=== PATIENT | female | born 1955 | race Caucasian/White ===

== ENCOUNTER 2021-02-01 09:56 | Outpatient (AMBR) | payer MEDICARE, MEDICAID, SELFPAY ==
--- NOTE | 2021-01-10 15:41 | PTNOTE_ITS ---
PT OP Initial Eval Patient Information Visit Reasons: POST OP KNEE Medical Diagnosis: Z47.89 Treatment Dx #1: Left Knee Mobility Deficits Treatment Dx #2: Left Knee Weakness Start of Care: 01/10/21 Date of Onset: 12/12/20 Initial Assessment Subjective Pt is a 65 y/o female s/p left knee arthroscopic surgery secondary to meniscal lesions 12/12/20. Pt has limitation with walking, standing, sitting, chores, self care, cooking, cleaning, and recreational activities. Objective Left Knee AROM: -12 deg to 90 deg with pain Left Knee MMTs Quads: 3-/5 Hs: 3-/5 Left Hip MMTs Glute Med: 3-/5 Glute Max: 3-/5 Knee Cap Mobility: decrease in all plane SLS: unable Assessment Pt demonstrate left knee pain and weakness s/p knee surgery leading to decline function. Pt will benefit from physical therapy to increase strength, mobility, and work on ambulation Short Term and Halfway Goals 1) Increase left knee AROM WFL in 12 wks to be able to perform squatting activities 2) Increase left knee MMTs grossly to 4-/5 in 12 wks to be able to perform chores 3) Decrease knee pain to 2/10 in 12 wks to be able to walk more than 1 hr 4) Increase left hip MMTs grossly to 3+/5 in 12 wks to be able to perform recreational activities 5) Increase SLS to 20 sec in 12 wks to be able to perform self care activities 6) Indep with HEP Treatment Plan 1) Manual Therapy 2) Therapeutic Activities 3) Therapeutic Exercises 4) Modalities (ice, heat) 5) Balance Training 6) Gait Training Frequency and Duration 2 x wk for 12 wks Certification Dates: 01/10/21 to 04/11/21 Office Procedures PT Procedures PT Date of Service: 01/10/21 OP PT Eval Mod Complex 30 minutes: Yes
--- NOTE | 2021-01-15 13:40 | PT.ODAYNRPT ---
PT Outpatient Daily Note Date of Service: 01/15/21 OP Daily Note Visit Reasons: POST OP KNEE Outpatient Physical Therapy Treatment Date: 01/15/21 Subjective: Pt's knee still hurts but she's been able to move it a lot more Objective: Please see flow chart for list of ther ex performed Assessment: tolerate exercises performed. difficulty with heel slide due to pain but able to complete exercise Plan: Continue with PT Length of Time (minutes) of Treatment: 30 Minutes Office Procedures PT Procedures PT Date of Service: 01/10/21 OP PT Eval Mod Complex 30 minutes: Yes PT Procedures PT Date of Service: 01/15/21 Therapeutic Exercise 30 minutes: Yes
--- NOTE | 2021-01-17 14:10 | PT.ODAYNRPT ---
PT Outpatient Daily Note Date of Service: 01/17/21 OP Daily Note Visit Reasons: POST OP KNEE Outpatient Physical Therapy Treatment Date: 01/17/21 Subjective: Pt notice increase BLE swelling in the legs L>R after last session. Pt feels that it's not related to physical therapy exercises done last session. Today Pt's knee is feeling better. Objective: Please see flow chart for list of ther ex performed Assessment: tolerate exercises with minimal pain; post ice help decrease swelling in the knee Plan: Continue with PT Length of Time (minutes) of Treatment: 30 Minutes Office Procedures PT Procedures PT Date of Service: 01/10/21 OP PT Eval Mod Complex 30 minutes: Yes PT Procedures PT Date of Service: 01/15/21 Therapeutic Exercise 30 minutes: Yes PT Procedures PT Date of Service: 01/17/21 Therapeutic Exercise 30 minutes: Yes
--- NOTE | 2021-01-24 13:39 | PT.ODAYNRPT ---
PT Outpatient Daily Note Date of Service: 01/24/21 OP Daily Note Visit Reasons: POST OP KNEE Outpatient Physical Therapy Treatment Date: 01/24/21 Subjective: Pt mention that her knee is hurting a little bit but is better. Pt has been able to do household walk inside the house without her crutches Objective: Please see flow chart for list of ther ex performed Assessment: tolerate exercises with minimal pain Plan: Continue with PT Length of Time (minutes) of Treatment: 30 Minutes Office Procedures PT Procedures PT Date of Service: 01/10/21 OP PT Eval Mod Complex 30 minutes: Yes PT Procedures PT Date of Service: 01/15/21 Therapeutic Exercise 30 minutes: Yes PT Procedures PT Date of Service: 01/17/21 Therapeutic Exercise 30 minutes: Yes PT Procedures PT Date of Service: 01/24/21 Therapeutic Exercise 30 minutes: Yes
--- NOTE | 2021-01-30 11:33 | PT.ODAYNRPT ---
PT Outpatient Daily Note Date of Service: 01/30/21 OP Daily Note Visit Reasons: POST OP KNEE Outpatient Physical Therapy Treatment Date: 01/30/21 Subjective: Walking more around the house and has been practicing using her legs more lately to engage the muscle Objective: Please see flow chart for list of ther ex performed Assessment: tolerate exercises with minimal pain Plan: Continue with PT Length of Time (minutes) of Treatment: 30 Minutes Office Procedures PT Procedures PT Date of Service: 01/10/21 OP PT Eval Mod Complex 30 minutes: Yes PT Procedures PT Date of Service: 01/15/21 Therapeutic Exercise 30 minutes: Yes PT Procedures PT Date of Service: 01/17/21 Therapeutic Exercise 30 minutes: Yes PT Procedures PT Date of Service: 01/24/21 Therapeutic Exercise 30 minutes: Yes PT Procedures PT Date of Service: 01/30/21 Therapeutic Exercise 30 minutes: Yes
--- NOTE | 2021-02-01 10:38 | PT.ODAYNRPT ---
PT Outpatient Daily Note Date of Service: 02/01/21 OP Daily Note Visit Reasons: POST OP KNEE Outpatient Physical Therapy Treatment Date: 02/01/21 Subjective: Pt's been able to walk without her crutches up to 50 ft. Pt's knee pop with certain movement Objective: Please see flow chart for list of ther ex performed Assessment: tolerate exercises with minimal pain; able to perform standing exercises longer without break. Also noted better quad control with LAQ Plan: Continue with PT Length of Time (minutes) of Treatment: 30 Minutes Office Procedures PT Procedures PT Date of Service: 01/10/21 OP PT Eval Mod Complex 30 minutes: Yes PT Procedures PT Date of Service: 01/15/21 Therapeutic Exercise 30 minutes: Yes PT Procedures PT Date of Service: 01/17/21 Therapeutic Exercise 30 minutes: Yes PT Procedures PT Date of Service: 01/24/21 Therapeutic Exercise 30 minutes: Yes PT Procedures PT Date of Service: 01/30/21 Therapeutic Exercise 30 minutes: Yes PT Procedures PT Date of Service: 02/01/21 Therapeutic Exercise 30 minutes: Yes
== END 2021-02-08 23:59 | disposition home or self-care (01) ==
PROVIDERS: PCP Physician Assistant; Referring Provider Physician Assistant; Visit Provider Orthopaedic Surgery
DX: Z47.89 Encounter for other orthopedic aftercare (principal); M25.562 Pain in left knee; R53.1 Weakness; R26.2 Difficulty in walking, not elsewhere classified
CPT/HCPCS: 97110; 97162

== ENCOUNTER 2021-03-05 08:52 | Outpatient (AMBR) | payer MEDICARE, MEDICAID, SELFPAY ==
--- NOTE | 2021-02-15 10:11 | PT.ODAYNRPT ---
PT Outpatient Daily Note Date of Service: 02/15/21 OP Daily Note Visit Reasons: POST OP KNEE Outpatient Physical Therapy Treatment Date: 02/15/21 Subjective: Pt's knee is hurting more. Her grandson has been pressing into the knee when he's watching TV. Pt also had a several eye infection which she couldn't come to PT for 1.5 week Objective: Please see flow chart for list of ther ex performed Assessment: tolerate exercises with minimal pain Plan: Continue with PT Length of Time (minutes) of Treatment: 30 Minutes Office Procedures PT Procedures PT Date of Service: 02/15/21 Therapeutic Exercise 30 minutes: Yes
--- NOTE | 2021-02-20 12:42 | PT.ODAYNRPT ---
PT Outpatient Daily Note Date of Service: 02/20/21 OP Daily Note Visit Reasons: POST OP KNEE Outpatient Physical Therapy Treatment Date: 02/20/21 Subjective: Pt's knee still hurting and feels about the same. Pt stated that she remember surgeon recommends knee replacement if this procedure doesn't help decrease knee pain Objective: Please see flow chart for list of ther ex performed Assessment: tolerate exercises with minimal pain Plan: Continue with PT Length of Time (minutes) of Treatment: 30 Minutes Office Procedures PT Procedures PT Date of Service: 02/15/21 Therapeutic Exercise 30 minutes: Yes PT Procedures PT Date of Service: 02/20/21 Therapeutic Exercise 30 minutes: Yes
--- NOTE | 2021-03-05 09:46 | PT.ODS1RPT ---
PT OP Progress/Discharge Note Date of Service: 03/05/21 Progress Note/DC Note Progress Note/Discharge Note: Progress Note Patient Information Visit Reasons: POST OP KNEE Medical Diagnosis: Z47.89 Treatment Dx #1: Left Knee Weakness Treatment Dx #2: Left Knee Mobility Deficits Service Continue Service or Discharge: Continue Service Certification Date Certification Dates: 03/05/21 to 06/05/21 Status Subjective: Pt mention that her knee is more swollen than usual due to being part of a wedding and dancing a lot this past weekend. Pt stated that she continues to have the same knee pain. Pt denies of increase knee pain with dancing just more so with walking. Pt did have a loss of balance last week where she fell and hit her arms. Pt has been able to walk, stand, and perform chores with less limitation. Pt will be seeing Dr Hendricks in ~ 2 weeks. Objective: Left Knee AROM: 0 deg to 125 deg Left Knee MMTs Quads: 3/5 Hs: 3/5 Left Hip MMTs Glute Med: 3/5 Glute Max: 3/5 SLS: 3 sec Assessment: Pt demonstrate improvement with overall knee ROM and strength, however, continues to have knee pain leading to difficulty with ambulation, self care, uneven surfaces, and performing functional tasks. Pt has not met set goals yet and will continue to benefit from physical therapy to increase strength, balance, and work on LE stability; thank you for your referrals. Plan: Continue with PT/POC Office Procedures PT Procedures PT Date of Service: 02/15/21 Therapeutic Exercise 30 minutes: Yes PT Procedures PT Date of Service: 02/20/21 Therapeutic Exercise 30 minutes: Yes PT Procedures PT Date of Service: 03/05/21 Therapeutic Exercise 30 minutes: Yes
--- NOTE | 2021-03-21 12:54 | PT.ODS1RPT ---
PT OP Progress/Discharge Note Date of Service: 03/21/21 Progress Note/DC Note Progress Note/Discharge Note: DC Note Patient Information Visit Reasons: POST OP KNEE Service Continue Service or Discharge: Discharge Discharge Date: 03/21/21 Status Assessment: Pt has been seen for 9 visits (eval + 8 visits). Pt last treated on 03/05/21 and requested to be d/c from physical therapy. Pt did not meet set goals in therapy, thank you for your referrals. Office Procedures PT Procedures PT Date of Service: 02/15/21 Therapeutic Exercise 30 minutes: Yes PT Procedures PT Date of Service: 02/20/21 Therapeutic Exercise 30 minutes: Yes PT Procedures PT Date of Service: 03/05/21 Therapeutic Exercise 30 minutes: Yes
== END 2021-03-11 23:59 | disposition home or self-care (01) ==
PROVIDERS: PCP Physician Assistant; Referring Provider Physician Assistant; Visit Provider Orthopaedic Surgery
DX: Z47.89 Encounter for other orthopedic aftercare (principal); M25.562 Pain in left knee; R53.1 Weakness; R26.2 Difficulty in walking, not elsewhere classified
CPT/HCPCS: 97110

== ENCOUNTER 2021-07-10 11:57 | Outpatient (AMBR) | payer MEDICARE, MEDICAID, SELFPAY ==
--- NOTE | 2021-06-13 11:46 | PT.OIERPT ---
PT OP Initial Eval Patient Information Visit Reasons: POST OP LEFT KNEE Medical Diagnosis: Z47.1; Z96.652 Treatment Dx #1: Left Knee Mobility Deficits Treatment Dx #2: Abnormal Gait Start of Care: 06/13/21 Date of Onset: 05/13/21 Initial Assessment Subjective Pt is a 66 y/o female s/p left TKA 05/13/21. Pt did received a few weeks of homehealth physical therapy with Bibi Butts. Pt still has knee pain (6/10) with activities. Pt has limitation with chores, self care, cooking, cleaning, lifting, chores, walking, standing, sleeping, and performing recreational activities. Objective Left Knee AROM: - 10 deg to 105 deg Left Knee PROM: - 8 deg to 110 deg Left Knee MMTs: grossly 3/5 Left Hip MMTs: grossly 3-/5 SLS: unable Assessment Pt demonstrate left knee mobility and strength deficits s/p TKA leading to difficulty with ADLs. Pt will benefit from physical therapy to increase ROM, strength, and work on ambulation Short Term and Residential Goals 1) Increase left knee AROM to 120 deg in 12 wks to be able to perform squatting activities 2) Decrease knee pain to 2/10 in 12 wks to be able to stand more than 1 hr 3) Increase left knee MMTs grossly to 4-/5 in 12 wks to be able to perform chores 4) Increase left hip MMTs grossly to 4-/5 in 12 wks to be able ambulate more than 1 hr 5) Increase SLS to 15 sec in 12 wks to be able to perform self care activities 6) Indep with HEP Treatment Plan 1) Manual Therapy 2) Therapeutic Activities 3) Therapeutic Exercises 4) Modalities (ice, heat) 5) Balance Training 6) Gait Training Frequency and Duration 2 x wk for 12 wks Certification Dates: 06/13/21 to 09/12/21 Office Procedures PT Procedures PT Date of Service: 06/13/21 OP PT Eval Mod Complex 30 minutes: Yes
--- NOTE | 2021-06-20 13:51 | PT.ODAYNRPT ---
PT Outpatient Daily Note Date of Service: 06/20/21 OP Daily Note Visit Reasons: POST OP LEFT KNEE Outpatient Physical Therapy Treatment Date: 06/20/21 Subjective: Pt mention that her knee is better, however, still notice swelling and pain with bending. Objective: Please see flow chart for list of ther ex performed Assessment: tolerate exercises with minimal pain; improved GT with practice and able to heel toe with cues. Plan: Continue with PT Length of Time (minutes) of Treatment: 30 Minutes Office Procedures PT Procedures PT Date of Service: 06/13/21 OP PT Eval Mod Complex 30 minutes: Yes PT Procedures PT Date of Service: 06/20/21 Gait Training 15 minutes: Yes Therapeutic Exercise 15 minutes: Yes
--- NOTE | 2021-06-24 12:17 | PT.ODAYNRPT ---
PT Outpatient Daily Note Date of Service: 06/24/21 OP Daily Note Visit Reasons: POST OP LEFT KNEE Outpatient Physical Therapy Treatment Date: 06/24/21 Subjective: Pt is walking better and notice gait improvement with her shoes on. Pt has been able to walk more around her house without her walker. Objective: Please see flow chart for list of ther ex performed Assessment: tolerate exercises with minimal pain; gait is more upright with less cues to heel toe walk as we practice GT in the PB Plan: Continue with PT Length of Time (minutes) of Treatment: 30 Minutes Office Procedures PT Procedures PT Date of Service: 06/13/21 OP PT Eval Mod Complex 30 minutes: Yes PT Procedures PT Date of Service: 06/20/21 Gait Training 15 minutes: Yes Therapeutic Exercise 15 minutes: Yes PT Procedures PT Date of Service: 06/24/21 Therapeutic Exercise 30 minutes: Yes
--- NOTE | 2021-06-27 12:58 | PTNOTE_ITS ---
PT Outpatient Daily Note Date of Service: 06/27/2021 OP Daily Note Visit Reasons: POST OP LEFT KNEE Outpatient Physical Therapy Treatment Date: 06/27/21 Subjective: pt her RLE is doing better since the TKR on the LLE. Objective: see flow sheet. Assessment: pt came in with her FWW. noted excessive hyperextension of the R knee with gait and static standing. pt denies any issues of the R knee. noted her posture is slight forward could be due to compensation. advised to not lean forward during walking exercises as she holds onto the PB. noted redness and swelling of the L knee. fair quad contraction during SAQs. ice pack post treatment. Plan: continue POC per PT. Length of Time (minutes) of Treatment: 30 Minutes UNDERWRITING SUPPORT MANAGER Service Modifier Method I: Divide the number of min of care provided by the UNDERWRITING SUPPORT MANAGER/ELECTRONIC CONSOLE DISPLAY OPERATOR by the total min of care provided then multiply by 100. If greater than 11 percent modifier is required. Method II: Divide the total time of care provided to patient by 10 (round to the nearest whole number) and add 1 min. to set the minimum time requirement. If treatment total was 60 min., then 10% of 6 min Did UNDERWRITING SUPPORT MANAGER provide more than 10% of the care?: Yes Office Procedures PT Treatments PT Date of Service: 06/13/21 OP PT Eval Mod Complex 30 minutes: Yes PT Treatments PT Date of Service: 06/27/21 Therapeutic Exercise 30 minutes: Yes PT Treatments PT Date of Service: 06/20/21 Gait Training 15 minutes: Yes Therapeutic Exercise 15 minutes: Yes PT Treatments PT Date of Service: 06/24/21 Therapeutic Exercise 30 minutes: Yes
--- NOTE | 2021-07-01 11:18 | PT.ODAYNRPT ---
PT Outpatient Daily Note Date of Service: 07/01/21 OP Daily Note Visit Reasons: POST OP LEFT KNEE Outpatient Physical Therapy Treatment Date: 07/01/21 Subjective: Pt's knee is doing much better. Pt stated that she can now side step into her bathroom. Getting into her house is also getting easier. Objective: Please see flow chart for list of ther ex performed Assessment: tolerate exercises with minimal pain; demonstrate improved gait with heel toe and more stride length Plan: Continue with PT Office Procedures PT Treatments PT Date of Service: 06/13/21 OP PT Eval Mod Complex 30 minutes: Yes PT Treatments PT Date of Service: 06/27/21 Therapeutic Exercise 30 minutes: Yes PT Treatments PT Date of Service: 07/01/21 Gait Training 15 minutes: Yes Therapeutic Exercise 15 minutes: Yes PT Treatments PT Date of Service: 06/20/21 Gait Training 15 minutes: Yes Therapeutic Exercise 15 minutes: Yes PT Treatments PT Date of Service: 06/24/21 Therapeutic Exercise 30 minutes: Yes
--- NOTE | 2021-07-08 14:04 | PT.ODS1RPT ---
PT OP Progress/Discharge Note Date of Service: 07/08/21 Progress Note/DC Note Progress Note/Discharge Note: Progress Note Patient Information Visit Reasons: POST OP LEFT KNEE Medical Diagnosis: Z47.1; Z96.652 Treatment Dx #1: Left Knee Mobility Deficits Treatment Dx #2: Left Knee Weakness Service Continue Service or Discharge: Continue Service Certification Date Certification Dates: 07/08/21 to 10/07/21 Status Subjective: Pt's knee is much better. Pt has been taking 10-15 steps at home without her walker. Pt notice that tieing her shoes is getting easier. Pt still has knee pain (6/10) with swelling especially at the end of the day. Pt has limitation with her steps, uneven surfaces, chores, prolonged walking, and performing recreational activities. Objective: Left Knee AROM: - 6 deg to 122 deg Left Knee MMTs Quads: 3+/5 Hs: 3+/5 Left Hip MMTs Glute Med: 3/5 Glute Max: 3/5 SLS: 5 sec Sit-Stand Test: 6 reps Assessment: Pt demonstrate improvement with knee ROM and strength allowing her start ambulating, standing, and performing chores with less limitation. Pt still exhibit LE weakness and decrease endurance leading to difficulty with prolonged activities or uneven surfaces. Pt continues to perform her HEP and scar tissue mob on a daily basis which is helping her pain and maintained gained ROM. Pt will continue to benefit from physical therapy to meet set goals in therapy, thank you for your referrals. Plan: Continue with PT/POC This patient's plan of care will be transfer to Ritesh Rios PT, DPT as of 07/15/21 Office Procedures PT Treatments PT Date of Service: 06/13/21 OP PT Eval Mod Complex 30 minutes: Yes PT Treatments PT Date of Service: 06/27/21 Therapeutic Exercise 30 minutes: Yes PT Treatments PT Date of Service: 07/01/21 Gait Training 15 minutes: Yes Therapeutic Exercise 15 minutes: Yes PT Treatments PT Date of Service: 06/20/21 Gait Training 15 minutes: Yes Therapeutic Exercise 15 minutes: Yes PT Treatments PT Date of Service: 06/24/21 Therapeutic Exercise 30 minutes: Yes PT Treatments PT Date of Service: 07/08/21 Therapeutic Exercise 30 minutes: Yes
--- NOTE | 2021-07-10 12:07 | PT.ODAYNRPT ---
PT Outpatient Daily Note Date of Service: 07/10/21 OP Daily Note Visit Reasons: POST OP LEFT KNEE Outpatient Physical Therapy Treatment Date: 07/10/21 Subjective: Pt's knee is better. Pt has been able to perform steps with less limitation. Objective: Please see flow chart for list of ther ex performed Assessment: tolerate exercises with minimal pain; able to perform step up with cues for quad engagement as she steps up. Pt demonstrate improvement with dynamic activities with less use of her hands for balance Plan: Continue with PT Length of Time (minutes) of Treatment: 30 Minutes Office Procedures PT Treatments PT Date of Service: 06/13/21 OP PT Eval Mod Complex 30 minutes: Yes PT Treatments PT Date of Service: 06/27/21 Therapeutic Exercise 30 minutes: Yes PT Treatments PT Date of Service: 07/01/21 Gait Training 15 minutes: Yes Therapeutic Exercise 15 minutes: Yes PT Treatments PT Date of Service: 07/10/21 Therapeutic Exercise 30 minutes: Yes PT Treatments PT Date of Service: 06/20/21 Gait Training 15 minutes: Yes Therapeutic Exercise 15 minutes: Yes PT Treatments PT Date of Service: 06/24/21 Therapeutic Exercise 30 minutes: Yes PT Treatments PT Date of Service: 07/08/21 Therapeutic Exercise 30 minutes: Yes
== END 2021-07-11 23:59 | disposition home or self-care (01) ==
PROVIDERS: PCP Physician Assistant; Referring Provider Physician Assistant; Visit Provider Orthopaedic Surgery
DX: Z47.1 Aftercare following joint replacement surgery (principal); Z96.652 Presence of left artificial knee joint; M25.562 Pain in left knee; R26.2 Difficulty in walking, not elsewhere classified
CPT/HCPCS: 97110; 97116; 97162

== ENCOUNTER 2021-08-08 08:16 | Outpatient (AMBR) | payer MEDICARE, MEDICAID, SELFPAY ==
--- NOTE | 2021-07-15 12:53 | PT.ODAYNRPT ---
PT Outpatient Daily Note Date of Service: 07/15/21 OP Daily Note Visit Reasons: POST OP LEFT KNEE Outpatient Physical Therapy Treatment Date: 07/15/21 Subjective: Pt reported tightness and tenderness around the L knee. Pt stated feeling little pain on B knees but is tolerable . Objective: See flow chart for therex. Assessment: Pt tolerated therex well w/ minimal complaints of pain to B knees while performing standing calf raises. Plan: Cont POC. Length of Time (minutes) of Treatment: 30 Minutes Office Procedures PT Treatments PT Date of Service: 07/15/21 Therapeutic Exercise 30 minutes: Yes
--- NOTE | 2021-07-18 12:52 | PT.ODAYNRPT ---
PT Outpatient Daily Note Date of Service: 07/18/21 OP Daily Note Visit Reasons: POST OP LEFT KNEE Outpatient Physical Therapy Treatment Date: 07/18/21 Subjective: Pt arrived with FWW today and reported 3-5/10 pain level to L knee. Objective: See flow chart for therex. Assessment: Pt tolerated therex well w/ minimal complaints of pain when performing step ups on 6in step. Pt was able to complete reps. Pt has limited extension ROM to L knee when ambulating. Plan: Cont POC per PT. Length of Time (minutes) of Treatment: 30 Minutes Office Procedures PT Treatments PT Date of Service: 07/18/21 Therapeutic Exercise 30 minutes: Yes PT Treatments PT Date of Service: 07/15/21 Therapeutic Exercise 30 minutes: Yes
--- NOTE | 2021-07-29 11:37 | PT.ODAYNRPT ---
PT Outpatient Daily Note Date of Service: 07/29/21 OP Daily Note Visit Reasons: POST OP LEFT KNEE Outpatient Physical Therapy Treatment Date: 07/29/21 Subjective: Pt arrived today using crutches. Pt reports she went to the doctors last week and reports that her knee is looking better. Pt reports that her knee is hyper sensitive when something touches her skin on L knee. Objective: See flow chart for therex. Assessment: Pt ambulated using crutches, step thru gait and slow lenin. Pt has tendency to circumduct L LE while performing step ups 6 in. Pt tolerated post ice pack well for edema management. Plan: Cont POC per PT. Length of Time (minutes) of Treatment: 30 Minutes Office Procedures PT Treatments PT Date of Service: 07/18/21 Therapeutic Exercise 30 minutes: Yes PT Treatments PT Date of Service: 07/15/21 Therapeutic Exercise 30 minutes: Yes PT Treatments PT Date of Service: 07/29/21 Therapeutic Exercise 30 minutes: Yes
--- NOTE | 2021-08-05 10:10 | PT.ODAYNRPT ---
PT Outpatient Daily Note Date of Service: 08/05/21 OP Daily Note Visit Reasons: POST OP LEFT KNEE Outpatient Physical Therapy Treatment Date: 08/05/21 Subjective: Pt arrives today w/ crutches reports knee is stiff due to cold weather. Objective: See flow chart for therex. Assessment: Added total gym to therex. Pt tolerated it well but required verbal cues to keep knees out. Pt limited in knee extension during total gym. Pt tolerated 10 lbs LLPS well w/ slight muscle guarding during the first minute and eventually calmed down with stretching into knee extension. Plan: Cont POC per PT. Length of Time (minutes) of Treatment: 30 Minutes Office Procedures PT Treatments PT Date of Service: 07/18/21 Therapeutic Exercise 30 minutes: Yes PT Treatments PT Date of Service: 07/15/21 Therapeutic Exercise 30 minutes: Yes PT Treatments PT Date of Service: 07/29/21 Therapeutic Exercise 30 minutes: Yes PT Treatments PT Date of Service: 08/05/21 Therapeutic Exercise 30 minutes: Yes
--- NOTE | 2021-08-08 09:22 | PT.ODAYNRPT ---
PT Outpatient Daily Note Date of Service: 08/08/2021 OP Daily Note Visit Reasons: POST OP LEFT KNEE Outpatient Physical Therapy Treatment Date: 08/08/21 Subjective: pt states she uses the crutches when ambulating outside her house. Objective: see flow sheet. Assessment: once pt is inside gym area she does not use the crutches. pt's gait is compensated due to pain and tightness. she not able to flex the knee as normal gait pattern so causes knee extension. she is able to ascend and descend the step with good form. she lacks knee extension as noted during her LAQs. LLPS with weight plus her ice pack in which she tolerated with pain. Length of Time (minutes) of Treatment: 30 Minutes Office Procedures PT Treatments PT Date of Service: 07/18/21 Therapeutic Exercise 30 minutes: Yes PT Treatments PT Date of Service: 08/08/21 Therapeutic Exercise 30 minutes: Yes PT Treatments PT Date of Service: 07/15/21 Therapeutic Exercise 30 minutes: Yes PT Treatments PT Date of Service: 07/29/21 Therapeutic Exercise 30 minutes: Yes PT Treatments PT Date of Service: 08/05/21 Therapeutic Exercise 30 minutes: Yes
== END 2021-08-11 23:59 | disposition home or self-care (01) ==
PROVIDERS: PCP Physician Assistant; Referring Provider Physician Assistant; Visit Provider Orthopaedic Surgery
DX: Z47.1 Aftercare following joint replacement surgery (principal); Z96.652 Presence of left artificial knee joint; M25.562 Pain in left knee; R26.2 Difficulty in walking, not elsewhere classified
CPT/HCPCS: 97110

== ENCOUNTER 2021-08-30 13:30 | Outpatient (AMBR) | payer MEDICARE, MEDICAID, SELFPAY ==
--- NOTE | 2021-08-12 10:39 | PT.ODAYNRPT ---
PT Outpatient Daily Note Date of Service: 08/12/2021 OP Daily Note Visit Reasons: POST OP LEFT KNEE Outpatient Physical Therapy Treatment Date: 08/12/21 Subjective: pt continues to have knee pain and difficulty with ambulating without AD. Objective: see flow sheet. Assessment: pt continues to ambulate with crutches. she lacks knee flexion with ambulation. as she performs the lunges onto the step she hip circumducts to compensate for the limited knee flexion she has. she tends to activate more the hips with her ambulation with very little knee flexion. she can ascend the step fine but with FWD lunges she compensates. the difference is the the FWD lunges is a higher step which then causes her to use more hip flexion. Plan: continue POC per PT. Length of Time (minutes) of Treatment: 30 Minutes Office Procedures PT Treatments PT Date of Service: 08/12/21 Therapeutic Exercise 30 minutes: Yes
--- NOTE | 2021-08-14 17:54 | PT.ODS1RPT ---
PT OP Progress/Discharge Note Date of Service: 08/14/21 Progress Note/DC Note Progress Note/Discharge Note: Progress Note Patient Information Visit Reasons: POST OP LEFT KNEE Treatment Dx #1: L TKA Service Continue Service or Discharge: Continue Service Status Subjective: Pt reports to therapy ambulating with B crutches she says is for her safety since she doesn't trust her balance outside. She doesn't use them inside her house. Pt says the knee is much better but it feels like it's going to give out sometimes. Objective: L knee AROM: flexion: 104 deg Extension: full Gait: hyperextension in stance phase Strength: Quads: 01/14 HS: 01/14 Assessment: Pt has attended the eval and 13 Rx visits with progress with therapy goals but still ambulating with crutches. Pt has poor terminal knee extension and distal quad control and the knees tend to hyperextend with gait. Pt looks unsteady with gait but has fair gross strength with lunges and partial body weight squatting. Pt would benefit from continued therapy in order to improve gait. Plan: Continue per POC, extend POC certification dates from 09/12/21 to 10/13/21. Office Procedures PT Treatments PT Date of Service: 08/12/21 Therapeutic Exercise 30 minutes: Yes PT Treatments PT Date of Service: 08/14/21 Therapeutic Exercise 30 minutes: Yes
--- NOTE | 2021-08-20 19:09 | PT.ODAYNRPT ---
PT Outpatient Daily Note Date of Service: 08/20/21 OP Daily Note Visit Reasons: POST OP LEFT KNEE Outpatient Physical Therapy Treatment Date: 08/20/21 Subjective: Pt reports to therapy ambulating without B crutches today Objective: SEe F/S for therex Assessment: Pt has poor terminal knee extension and distal quad control and the knees tend to hyperextend with gait. Pt looks unsteady with gait but has fair gross strength with lunges and partial body weight squatting. Pt would benefit from continued therapy in order to improve gait. Plan: Continue per POC Length of Time (minutes) of Treatment: 30 Minutes Office Procedures PT Treatments PT Date of Service: 08/20/21 Therapeutic Exercise 30 minutes: Yes PT Treatments PT Date of Service: 08/12/21 Therapeutic Exercise 30 minutes: Yes PT Treatments PT Date of Service: 08/14/21 Therapeutic Exercise 30 minutes: Yes
--- NOTE | 2021-08-27 13:24 | PT.ODAYNRPT ---
PT Outpatient Daily Note Date of Service: 08/27/21 OP Daily Note Visit Reasons: POST OP LEFT KNEE Outpatient Physical Therapy Treatment Date: 08/27/21 Subjective: Pt reports to therapy ambulating without B crutches today Objective: See F/S for therex MT: PPM into knee flexion with overpressure x10' Assessment: Pt has poor terminal knee extension and distal quad control and the knees tend to hyperextend with gait. Pt looks unsteady with gait but has fair gross strength with lunges and partial body weight squatting. Pt can flex the knee back to about 105 deg with overpressure Plan: Continue per POC Length of Time (minutes) of Treatment: 40 Minutes Office Procedures PT Treatments PT Date of Service: 08/20/21 Therapeutic Exercise 30 minutes: Yes PT Treatments PT Date of Service: 08/27/21 Therapeutic Exercise 30 minutes: Yes Manual Unhairing Inspector 15 minutes: Yes PT Treatments PT Date of Service: 08/12/21 Therapeutic Exercise 30 minutes: Yes PT Treatments PT Date of Service: 08/14/21 Therapeutic Exercise 30 minutes: Yes
--- NOTE | 2021-08-30 13:33 | PTNOTE_ITS ---
PT Outpatient Daily Note Date of Service: 08/30/2021 OP Daily Note Visit Reasons: POST OP LEFT KNEE Outpatient Physical Therapy Treatment Date: 08/30/21 Subjective: pt feels stiffness and denies pain of the knee. Objective: see flow sheet. Assessment: pt ambulates with poor posture as she leans forward with decreased knee flexion with circumduction of the hip as she has no heel strike. she has no AD but walks with slow pace. she has limited knee flexion ROM. she does have good knee extension as observed during her gastroc stretch. Plan: continue POC per PT. Length of Time (minutes) of Treatment: 30 Minutes Office Procedures PT Treatments PT Date of Service: 08/20/21 Therapeutic Exercise 30 minutes: Yes PT Treatments PT Date of Service: 08/27/21 Therapeutic Exercise 30 minutes: Yes Manual Report Developer 15 minutes: Yes PT Treatments PT Date of Service: 08/30/21 Therapeutic Exercise 30 minutes: Yes PT Treatments PT Date of Service: 08/12/21 Therapeutic Exercise 30 minutes: Yes PT Treatments PT Date of Service: 08/14/21 Therapeutic Exercise 30 minutes: Yes
--- NOTE | 2021-09-12 16:10 | PTNOTE_ITS ---
PT OP Progress/Discharge Note Date of Service: 09/12/21 Progress Note/DC Note Progress Note/Discharge Note: DC Note Patient Information Visit Reasons: POST OP LEFT KNEE Service Continue Service or Discharge: Discharge Discharge Date: 09/12/21 Status Assessment: Pt has been seen for 17 visits (eval + 16 visits) inconsistently. Pt last treated on 08/30/21 and has not returned back to therapy. Pt no showed 3 appts (07/31, 08/19, and 09/03) and will be d/c from care per attendance policy. Pt did not meet set goals in therapy, thank you for your referrals Office Procedures PT Treatments PT Date of Service: 08/20/21 Therapeutic Exercise 30 minutes: Yes PT Treatments PT Date of Service: 08/27/21 Therapeutic Exercise 30 minutes: Yes Manual Screener And Blender Operator 15 minutes: Yes PT Treatments PT Date of Service: 08/30/21 Therapeutic Exercise 30 minutes: Yes PT Treatments PT Date of Service: 08/12/21 Therapeutic Exercise 30 minutes: Yes PT Treatments PT Date of Service: 08/14/21 Therapeutic Exercise 30 minutes: Yes
== END 2021-09-10 23:59 | disposition home or self-care (01) ==
PROVIDERS: PCP Physician Assistant; Referring Provider Physician Assistant; Visit Provider Orthopaedic Surgery
DX: Z47.1 Aftercare following joint replacement surgery (principal); Z96.652 Presence of left artificial knee joint; M25.562 Pain in left knee; R26.2 Difficulty in walking, not elsewhere classified
CPT/HCPCS: 97110; 97140

== ENCOUNTER 2024-08-21 02:30 | Emergency (ER) | payer OTHER, MEDICAID, SELFPAY ==
[2024-08-21 02:31] VITALS: BMI 25.1
[2024-08-21 02:37] VITALS: BP 136/77; PULSE 88; RESP 19; TEMP 36.4; O2SAT 99
--- NOTE | 2024-08-21 02:39 | EDNOTE_ITS ---
ED Ear RME/HPI General Chief complaint: Skin/Abscess/Foreign Body Stated complaint: bug in left ear Time Seen by Provider: 08/21/24 02:37 Arrival date/time: 08/21/24 02:30 69F with history of HTN, CAD/AL, and DM presents to ED with possible bug in L ear. Limitations: no limitations Related Data Home Medications ?Medication ?Instructions ?Recorded ?Confirmed aspirin 81 mg tablet,delayed 81 mg PO QDAY 05/24/20 05/24/24 release rosuvastatin 20 mg sprinkle capsule 20 mg PO QDAY 12/11/20 05/24/24 metoprolol succinate 50 mg capsule 50 mg PO QDAY 05/14/21 05/24/24 sprinkle, ext. release 24 hr nitroglycerin 0.4 mg sublingual 0.4 mg sublingual Q5M PRN 04/28/22 05/24/24 tablet pantoprazole 40 mg tablet,delayed 40 mg PO QDAY 04/28/22 05/24/24 release semaglutide 0.25 mg or 0.5 mg (2 0.25 mg subcut QWEEK 04/28/22 05/24/24 mg/1.5 mL) subcutaneous pen injector (Ozempic) nitrofurantoin macrocrystal 50 mg 50 mg PO QHS 10/28/22 05/24/24 capsule dapagliflozin propanediol 5 mg 5 mg PO QDAY 02/24/23 05/24/24 tablet (Farxiga) vibegron 75 mg tablet (Gemtesa) 75 mg PO QDAY 08/25/23 05/24/24 Allergies Allergy/AdvReac Type Severity Reaction Status Date / Time erythromycin base Allergy Severe Anaphylaxis Verified 08/21/24 02:32 ketorolac [From Toradol] Allergy Swelling Verified 08/21/24 02:32 of Lip/Tongue/Throat Review of Systems Review of Systems Systems Reviewed: All systems reviewed, normal except as documented Constitutional Constitutional: Reports system reviewed and no additional complaints, except as documented, Denies fever(s) and Denies headache(s) ENT Ears, Nose, Mouth, and Throat: Denies disequilibrium and Denies headache(s) Cardiovascular Cardiovascular: Reports system reviewed and no additional complaints, except as documented, Denies chest pain and Denies dyspnea Respiratory Respiratory: Reports system reviewed and no additional complaints, except as documented, Denies cough and Denies dyspnea Gastrointestinal Gastrointestinal: Reports system reviewed and no additional complaints, except as documented, Denies abdominal pain, Denies nausea and Denies vomiting Neurologic Neurologic: Reports system reviewed and no additional complaints, except as documented, Denies confusion, Denies disequilibrium and Denies headache(s) Psychiatric Psychiatric: Denies confusion Past Medical History Past Medical History NEUROLOGIC: Negative Neurological Disorders or Seizures CARDIAC: Positive Cardiac Disorders, Myocardial Infarction (HOSP HAS CORONARY STENT X3), Hypercholesterolemia (TAKES MED) and Hypertension (TAKES MED); Negative Congestive Heart Failure, Edema, Cellulitis or Varicose Veins RESPIRATORY: Positive Asthma (HAS INHALER); Negative Chronic Obstructive Pulmonary Disease (COPD), Tuberculosis, Pulmonary Embolism or Sleep Apnea GASTROINTESTINAL: Positive Gastrointestinal Disorders and Gall Bladder Disease (LAP 2001); Negative Hepatitis GENITOURINARY: Positive Genitourinary Disorders and Renal Disease (BEING OBSERVED FOR KIDNEY FUNCTION HAS NURSING INFORMATICS ANALYST) REPRODUCTIVE: Positive Previous Pregnancies (X4) MUSCULOSKELETAL: Positive Musculoskeletal Disorders, Rheumatoid Arthritis and Carpal Tunnel Syndrome (RIGHT 2002) ENT: Positive Cataracts (2004 RIGHT,2006 LEFT) ENDOCRINE: Positive Endocrine Disorders and Diabetes Mellitus Type 2 (TAKES PO MED); Negative Diabetes Mellitus Type 1 HEMATOLOGIC: Negative Blood Disorders OTHER HISTORY: Positive Hospitalization (03/26/2019), Chicken Pox, Measles and Mumps; Negative Autoimmune Disease, Shingles, Falls, Blood Transfusions, Blood Transfusion Reaction, Anesthesia Reactions, Chemotherapy, Radiation Therapy, MRSA or Cancer Family History FAMILY HISTORY: Positive Family Respiratory Disorders, Family Cardiac Disorders, Family Gastrointestinal Problems (mom), Family Cancer and Family Surgery; Negative Family Psychiatric Problems or Family Anesthesia Reaction Surgical History SURGICAL: Positive Cardiac Surgery, Coronary Stent, Angiogram, Arthroscopy and Tubal Ligation; Negative Pacemaker Social History SMOKING STATUS: Never smoker ED Exam General Limitations: Present no limitations General appearance: Present alert and in no apparent distress Head Head exam: Present atraumatic Eye Eye exam: Present normal appearance, PERRL and EOMI ENT ENT exam: Present normal oropharynx and mucous membranes moist Expanded ENT Exam TM/Canal exam: Left TM: foreign body Neck Neck exam: Present normal inspection, full ROM and trachea midline Chest Chest inspection: Present normal inspection and symmetric chest wall rise Respiratory Respiratory exam: Present normal lung sounds bilaterally Cardiovascular Cardiovascular exam: Present regular rate, normal rhythm and normal heart sounds Abdominal Exam Abdominal exam: Present soft and normal bowel sounds Extremities Exam Extremities exam: Present normal inspection and full ROM Back Exam Back exam: Present normal inspection and full ROM Neurological Exam Neurological exam: Present alert, oriented X3 and CN II-XII intact Psychiatric Psychiatric exam: Present normal affect and normal mood Skin Skin exam: Present warm, dry, intact and normal color Course Quality Measures none Orders Category Date Time Status ED Ear Irrigation X1 Care 08/21/24 02:38 Active Vital Signs Vital signs: Vital Signs Temperature 97.5 F 08/21/24 02:37 Pulse Rate 88 08/21/24 02:37 Respiratory Rate 19 08/21/24 02:37 Blood Pressure 136/77 H 08/21/24 02:37 Pulse Oximetry (%) 99 08/21/24 02:37 Oxygen Delivery Method Room Air 08/21/24 02:37 O2 at 99% on RA and WNLs Ear MDM Narrative MDM Narrative:: 69F with history of HTN, CAD/AL, and DM presents to ED with possible bug in L ear. Physical exam reveals no obvious insect or FB in L ear canal. Patient is afebrile, calm, and alert. Irrigation revealed very small gnat. Patient data External records reviewed:: [facility] previous records Clinical information provided by:: patient Social determinants that could affect healthcare access:: none Patient has the following chronic illnesses:: HTN, CAD/AL, and DM How is presenting disease/condition affected by chronic disease/condition?: uneffected by Evaluation data The following diagnostics were reviewed and interpreted by me:: other (specify) (none) Lab and/or radiology exams considered but not ordered:: not ordered Interpretation Summary: n/a Medications / Prescriptions Medications or Prescriptions considered but not ordered:: not ordered Medication administrations:: n/a Consultations Consultation(s) initiated? (list below): No Diagnosis Ear Differential Diagnosis: otitis externa, otitis media, foreign body in ear, ruptured TM and cerumen impaction Most likely diagnosis given after review of the tests above:: FB ear Admission Indicated Admission indicated?: not indicated Admission Request Was there a request for admission?: No Disposition Plan Disposition Plan: Discharge Discharge Attestation Discharge Attestation: The patient and all family members were given an opportunity to ask questions and understood the discharge instructions. Discharge instructions specifically effects, indications for sooner follow up or return to the emergency department, and the expected course of current diagnosis. Patient condition: Stable Discharge Plan Plan Patient Disposition: HOME (Self Care) Disposition Comment: Stable Prescriptions/Referrals Prescriptions/Med Rec: No Action aspirin 81 mg tablet,delayed release (DR/EC) 81 mg PO QDAY nitrofurantoin macrocrystal 50 mg capsule 50 mg PO QHS Rx Instructions: must administer with a meal/food Farxiga 5 mg tablet 5 mg PO QDAY nitroglycerin 0.4 mg tablet, sublingual 0.4 mg sublingual Q5M PRN Rx Instructions: do not exceed 3 doses per episode Ozempic 0.25 mg or 0.5 mg(2 mg/1.5 mL) pen injector 0.25 mg subcut QWEEK Rx Instructions: for 4 doses pantoprazole 40 mg tablet,delayed release (DR/EC) 40 mg PO QDAY Gemtesa 75 mg tablet 75 mg PO QDAY metoprolol succinate 50 mg Capsule,Sprinkle,Er 24hr 50 mg PO QDAY rosuvastatin 20 mg Capsule, Sprinkle 20 mg PO QDAY Problem List Clinical Impression: Normal ear exam Patient/Caregiver Discharge Instructions Additional Instructions: Please follow-up with PCP within 24-48 hours and return immediately if symptoms worsen. Print Language: Romanian Stand Alone Forms: Patient Portal Info Letter [place] Supervising Physician [place] Supervising Physician: Dr. Blake
== END 2024-08-21 03:09 | disposition home or self-care (01) ==
LOC: SERX 03:05
PROVIDERS: Emergency Provider Emergency Medicine; PCP Internal Medicine
DX: T16.2XXA Foreign body in left ear, initial encounter (principal); W44.F4XA Insect entering into or through a natural orifice, initial encounter
CPT/HCPCS: 69200; 99283

== ENCOUNTER → 2024-11-22 | Outpatient (BNVA) | payer MEDICARE, MEDICAID, SELFPAY | END | disposition home or self-care (01) | PROVIDERS: PCP Internal Medicine; Referring Provider Internal Medicine; Visit Provider Urology | DX: N39.3 Stress incontinence (female) (male) (principal); I12.9 Hypertensive chronic kidney disease with stage 1 through stage 4 chronic kidney disease, or unspecified chronic kidney disease; E11.22 Type 2 diabetes mellitus with diabetic chronic kidney disease; N18.30 Chronic kidney disease, stage 3 unspecified; Z87.440 Personal history of urinary (tract) infections; Z96.659 Presence of unspecified artificial knee joint; E78.00 Pure hypercholesterolemia, unspecified; I25.2 Old myocardial infarction | CPT/HCPCS: 81003; 99212; G0463 ==

== ENCOUNTER → 2024-12-02 | Outpatient (CLI) | payer MEDICARE, MEDICAID, SELFPAY ==
--- NOTE | 2024-12-02 13:19 | XR_ITS ---
Examination: Left knee 2 views Technique one AP lateral left knee 2 views Exam date and time: December 02, 2024 1422 hours INDICATIONS: Status post knee replacement August 2024 FINDINGS: Moderate osteopenia Total left knee arthroplasty. Satisfactory alignment No loosening of the prosthetic components No fracture IMPRESSION: Total left knee arthroplasty with satisfactory alignment
== END | disposition home or self-care (01) ==
PROVIDERS: PCP Internal Medicine; Referring Provider Orthopaedic Surgery; Visit Provider Orthopaedic Surgery
DX: M25.562 Pain in left knee (principal); Z96.652 Presence of left artificial knee joint
CPT/HCPCS: 73560

== ENCOUNTER → 2025-01-10 | Outpatient (CLI) | payer MEDICARE, MEDICAID, SELFPAY ==
[2025-01-10 12:02] LABS: Basophils # (Auto) 0.1 Thou/mm3 (0.0-0.2); Basophils % (Auto) 0 % (0-2.5); Eosinophils # (Auto) 0.1 Thou/mm3 (0.0-0.5); Eosinophils % (Auto) 1 % (0-10); Hematocrit 42.3 % (36.0-46.0); Hemoglobin 14.3 g/dL (12.0-16.0); Immature Granulocytes % (Auto) 1 % (0-0); Immature Granulocytes Auto 0.07 Thou/mm3 (0.00-0.00); Lymphocytes # (Auto) 1.8 Thou/mm3 (1.0-4.8); Lymphocytes % (Auto) 16 % (10-50); Mean Corpuscular HGB Conc 33.8 g/dl (31.0-37.0); Mean Corpuscular Hemoglobin 29.4 pg (25.0-35.0); Mean Corpuscular Volume 87 fL (80-100); Monocytes # (Auto) 0.5 Thou/mm3 (0.0-0.8); Monocytes % (Auto) 4 % (0-12); Neutrophils # (Auto) 8.9 Thou/mm3 (1.8-7.7); Neutrophils % (Auto) 77 % (37-80); Nucleated Red Blood Cell % 0 /100 WBC (0); Platelet Count 348 Thou/mm3 (140-440); RDW Standard Deviation 46.6 fL (36.4-46.3); Red Blood Count 4.86 Miln/mm3 (4.00-5.20); White Blood Count 11.5 Thou/mm3 (3.6-11.0)
[2025-01-10 12:13] LABS: Glucose Estimated Average 120 mg/dL (80-131); Hemoglobin A1C 5.8 % Hgb (4.8-6.0)
[2025-01-10 12:28] LABS: Alanine Aminotransferase 16 U/L (10-49); Albumin, Serum 4.4 gm/dL (3.4-4.8); Alkaline Phosphatase 93 U/L (46-116); Anion Gap 8 (7-16); Aspartate Amino Transferase 23 U/L (0-34); BUN/Creatinine Ratio 11 Ratio (12-20); Blood Urea Nitrogen 13 mg/dL (9-23); Calcium 9.7 mg/dL (8.3-10.6); Calcium (Corrected) 9.7 mg/dL (8.5-10.1); Carbon Dioxide 24.2 mMol/L (20.0-31.0); Cardiac Risk Estimate 2.7 RATIO (3.7-5.6); Chloride 110 mMol/L (98-107); Cholesterol 154 mg/dL (132-200); Creatinine (Component) 1.2 mg/dL (0.6-1.3); Globulin 2.2 gm/dL (2.3-3.5); Glucose 118 mg/dL (74-106); HDL Cholesterol 57 mg/dL (40-60); LDL Cholesterol,Calculated 72 mg/dL (0-130); Osmolality,Calculated 284 (275-295); Potassium 4.4 mMol/L (3.4-5.1); Sodium 142 mMol/L (136-145); Thyroid Stimulating Hormone 1.89 uIU/mL (0.55-4.78); Total Protein 6.6 gm/dL (5.7-8.2); Triglycerides 123 mg/dL (30-150); eGFR 49 See Note
[2025-01-10 12:30] LABS: Vitamin B12 1244 pg/mL (211-911)
[2025-01-10 12:43] LABS: Collection Type, Urine Clean Catch
[2025-01-10 13:22] LABS: Bilirubin,Urine Negative (Negative); Blood,Urine Trace (Negative); Clarity,Urine Clear (Clear/Hazy); Color,Urine Lt-Yellow (Lt Yel-Yel); Glucose, Urine 4+ (Negative); Ketones,Urine Negative (Negative); Leukocyte Esterase,Urine Positive (Negative); Nitrite,Urine Negative (Negative); Protein,Urine Negative (Neg - Trace); RBC,Urine 2 /hpf (0-3); Specific Gravity,Urine 1.012 (1.001-1.035); Squamous Epithelial Cell,Urine < 1 /hpf (0-5); Urobilinogen,Urine Negative mg/dL (0.0-1.0); WBC,Urine 5 /hpf (0-5)
[2025-01-10 13:33] LABS: Creatinine MALB Rnd Ur 36 mg/dL (30-125)
[2025-01-10 13:35] LABS: Microalbumin Creat Ratio 11 mg/gCrea (<30); Microalbumin, Random Urine 4 mg/L (0-300)
== END | disposition home or self-care (01) ==
LOC: COPL 11:32
PROVIDERS: PCP Internal Medicine; Referring Provider Internal Medicine; Visit Provider Internal Medicine
DX: E11.9 Type 2 diabetes mellitus without complications (principal); I10 Essential (primary) hypertension; E78.5 Hyperlipidemia, unspecified
CPT/HCPCS: 36415; 80053; 80061; 81001; 82043; 82306; 82570; 82607; 83036; 84443; 85025

== ENCOUNTER → 2025-03-01 | Outpatient (CLI) | payer MEDICARE, MEDICAID, SELFPAY ==
[2025-03-01 11:38] LABS: Basophils # (Auto) 0.1 Thou/mm3 (0.0-0.2); Basophils % (Auto) 1 % (0-2.5); Eosinophils # (Auto) 0.3 Thou/mm3 (0.0-0.5); Eosinophils % (Auto) 3 % (0-10); Hematocrit 41.2 % (36.0-46.0); Hemoglobin 13.8 g/dL (12.0-16.0); Immature Granulocytes % (Auto) 1 % (0-0); Immature Granulocytes Auto 0.05 Thou/mm3 (0.00-0.00); Lymphocytes # (Auto) 2.2 Thou/mm3 (1.0-4.8); Lymphocytes % (Auto) 21 % (10-50); Mean Corpuscular HGB Conc 33.5 g/dl (31.0-37.0); Mean Corpuscular Hemoglobin 30.5 pg (25.0-35.0); Mean Corpuscular Volume 91 fL (80-100); Monocytes # (Auto) 0.5 Thou/mm3 (0.0-0.8); Monocytes % (Auto) 5 % (0-12); Neutrophils # (Auto) 7.6 Thou/mm3 (1.8-7.7); Neutrophils % (Auto) 71 % (37-80); Nucleated Red Blood Cell % 0 /100 WBC (0); Platelet Count 354 Thou/mm3 (140-440); RDW Standard Deviation 49.1 fL (36.4-46.3); Red Blood Count 4.52 Miln/mm3 (4.00-5.20); White Blood Count 10.8 Thou/mm3 (3.6-11.0)
[2025-03-01 11:48] LABS: Glucose Estimated Average 120 mg/dL (80-131); Hemoglobin A1C 5.8 % Hgb (4.8-6.0)
[2025-03-01 11:52] LABS: Alanine Aminotransferase 17 U/L (10-49); Albumin, Serum 4.4 gm/dL (3.4-4.8); Albumin/Globulin Ratio 1.8 (1.2-2.2); Alkaline Phosphatase 95 U/L (46-116); Anion Gap 8 (7-16); Aspartate Amino Transferase 23 U/L (0-34); BUN/Creatinine Ratio 15 Ratio (12-20); Bilirubin,Total 0.8 mg/dL (0.3-1.2); Blood Urea Nitrogen 15 mg/dL (9-23); Calcium 9.3 mg/dL (8.3-10.6); Calcium (Corrected) 9.3 mg/dL (8.5-10.1); Carbon Dioxide 26.9 mMol/L (20.0-31.0); Cardiac Risk Estimate 2.8 RATIO (3.7-5.6); Chloride 109 mMol/L (98-107); Cholesterol 157 mg/dL (132-200); Globulin 2.5 gm/dL (2.3-3.5); Glucose 137 mg/dL (74-106); HDL Cholesterol 57 mg/dL (40-60); LDL Cholesterol,Calculated 67 mg/dL (0-130); Osmolality,Calculated 289 (275-295); Potassium 5.2 mMol/L (3.4-5.1); Sodium 144 mMol/L (136-145); Thyroid Stimulating Hormone 2.31 uIU/mL (0.55-4.78); Total Protein 6.9 gm/dL (5.7-8.2); Triglycerides 166 mg/dL (30-150); eGFR > 60 See Note
== END | disposition home or self-care (01) ==
PROVIDERS: PCP Internal Medicine; Referring Provider Internal Medicine; Visit Provider Internal Medicine
DX: E11.9 Type 2 diabetes mellitus without complications (principal); E78.5 Hyperlipidemia, unspecified; I10 Essential (primary) hypertension
CPT/HCPCS: 36415; 80053; 80061; 81001; 82043; 82570; 83036; 84443; 85025

== ENCOUNTER → 2025-04-25 | Outpatient (CLI) | payer MEDICARE, MEDICAID, SELFPAY ==
--- NOTE | 2025-04-25 13:30 | XR_ITS ---
Examination: Screening digital mammography, bilateral Computer aided detection 3-D breast Tomosynthesis, bilateral Date and time of exam: April 25, 2025 1325 hours Compared to mammograms dating to March 04, 2005 Indication: Screening Technique: Nonmagnified MLO, CC views of the breasts to been obtained, reconstructed from 3-D Tomosynthesis images. R2 computer aided detection program utilized for evaluation of suspicious masses and/or abnormal calcifications. 3-D Tomosynthesis images obtained. Findings: The breasts are heterogeneously dense, which may obscure small masses Benign calcifications. No interval suspicious masses Impression: BI-RADS category II: Benign Findings. Recommend 1 year follow-up mammogram.
--- NOTE | 2025-04-25 14:00 | XR_ITS ---
Examination: Bone densitometry Date and time of exam:April 25, 2025 1340 hours INDICATIONS: Menopause age 40 postmenopausal finger fractures, diabetic, personal history osteopenia Technique: Lumbar spine and hip total bone mineralization values of an calculated. Peak reference and age match control results have been displayed. Findings: Lumbar spine total bone mineralization is0.991 gm/cm2. This is 0.5 standard deviations below peak reference. This is 1.7 standard deviations above age-matched controls. Hip total bone mineralization is 0.696 gm/cm2 This is 2.0 standard deviations below peak reference. This is 0.4 standard deviations below age-matched controls Impression: There is normal mineralization based on lumbar spine measurements. There is osteoporosis based on hip measurements Lumbar mineralization is increase 7.2% compared with December 29, 2022 Hip mineralization is decreased 1.9% compared with December 29, 2022
== END | disposition home or self-care (01) ==
LOC: CDIM 13:09
PROVIDERS: Referring Provider Internal Medicine; Visit Provider Internal Medicine
DX: Z12.31 Encounter for screening mammogram for malignant neoplasm of breast (principal); R92.1 Mammographic calcification found on diagnostic imaging of breast; R92.333 Mammographic heterogeneous density, bilateral breasts; M81.0 Age-related osteoporosis without current pathological fracture
CPT/HCPCS: 77063; 77067; 77080

== ENCOUNTER → 2025-07-06 | Outpatient (CLI) | payer MEDICARE, MEDICAID, SELFPAY ==
[2025-07-06 09:56] LABS: Collection Type, Urine Clean Catch
[2025-07-06 10:25] LABS: Basophils # (Auto) 0.1 Thou/mm3 (0.0-0.2); Basophils % (Auto) 1 % (0-2.5); Eosinophils # (Auto) 0.3 Thou/mm3 (0.0-0.5); Eosinophils % (Auto) 3 % (0-10); Hematocrit 44.0 % (36.0-46.0); Hemoglobin 14.8 g/dL (12.0-16.0); Immature Granulocytes Auto 0.06 Thou/mm3 (0.00-0.00); Lymphocytes # (Auto) 1.8 Thou/mm3 (1.0-4.8); Lymphocytes % (Auto) 19 % (10-50); Mean Corpuscular HGB Conc 33.6 g/dl (31.0-37.0); Mean Corpuscular Hemoglobin 30.9 pg (25.0-35.0); Mean Corpuscular Volume 92 fL (80-100); Monocytes # (Auto) 0.5 Thou/mm3 (0.0-0.8); Monocytes % (Auto) 5 % (0-12); Neutrophils # (Auto) 6.8 Thou/mm3 (1.8-7.7); Neutrophils % (Auto) 72 % (37-80); Nucleated Red Blood Cell # 0.00 Thou/mm3 (0.00-0.00); Nucleated Red Blood Cell % 0 /100 WBC (0); Platelet Count 275 Thou/mm3 (140-440); RDW Standard Deviation 48.0 fL (36.4-46.3); Red Blood Count 4.79 Miln/mm3 (4.00-5.20); White Blood Count 9.5 Thou/mm3 (3.6-11.0)
[2025-07-06 10:37] LABS: B-Type Natriuretic Peptide 49 pg/mL (0-100)
[2025-07-06 10:39] LABS: Glucose Estimated Average 157 mg/dL (80-131); Hemoglobin A1C 7.1 % Hgb (4.8-6.0)
[2025-07-06 10:39] LABS: Bilirubin,Urine Negative (Negative); Blood,Urine 1+ (Negative); Clarity,Urine Clear (Clear/Hazy); Color,Urine Yellow (Lt Yel-Yel); Glucose, Urine 4+ (Negative); Ketones,Urine Negative (Negative); Leukocyte Esterase,Urine Negative (Negative); Nitrite,Urine Negative (Negative); PH,Urine 6.5 (5.0-7.0); Protein,Urine Negative (Neg - Trace); RBC,Urine 8 /hpf (0-3); Specific Gravity,Urine 1.027 (1.001-1.035); Squamous Epithelial Cell,Urine 1 /hpf (0-5); Urobilinogen,Urine Negative mg/dL (0.0-1.0); WBC,Urine 2 /hpf (0-5)
[2025-07-06 10:52] LABS: Alanine Aminotransferase 17 U/L (10-49); Albumin, Serum 4.2 gm/dL (3.4-4.8); Alkaline Phosphatase 70 U/L (46-116); Anion Gap 11 (7-16); Aspartate Amino Transferase 25 U/L (0-34); BUN/Creatinine Ratio 14 Ratio (12-20); Bilirubin,Direct 0.3 mg/dL (0.0-0.3); Bilirubin,Total 0.9 mg/dL (0.3-1.2); Blood Urea Nitrogen 17 mg/dL (9-23); Calcium 9.2 mg/dL (8.3-10.6); Carbon Dioxide 27.3 mMol/L (20.0-31.0); Cardiac Risk Estimate 2.6 RATIO (3.7-5.6); Chloride 106 mMol/L (98-107); Cholesterol 174 mg/dL (132-200); Creatinine (Component) 1.2 mg/dL (0.6-1.3); Free T4 (Free Thyroxine) 1.21 ng/dL (0.89-1.76); Glucose 151 mg/dL (74-106); HDL Cholesterol 67 mg/dL (40-60); LDL Cholesterol,Calculated 84 mg/dL (0-130); Osmolality,Calculated 291 (275-295); Phosphorous 2.6 mg/dL (2.4-5.1); Potassium 4.2 mMol/L (3.4-5.1); Sodium 144 mMol/L (136-145); Thyroid Stimulating Hormone 2.07 uIU/mL (0.55-4.78); Total Protein 6.4 gm/dL (5.7-8.2); Triglycerides 113 mg/dL (30-150); eGFR 48 See Note
== END | disposition home or self-care (01) ==
LOC: COPL 09:25
PROVIDERS: PCP Internal Medicine; Referring Provider Internal Medicine Cardiovascular Disease; Visit Provider Internal Medicine Cardiovascular Disease
DX: I11.0 Hypertensive heart disease with heart failure (principal); I50.9 Heart failure, unspecified; E78.5 Hyperlipidemia, unspecified; E11.65 Type 2 diabetes mellitus with hyperglycemia; R82.90 Unspecified abnormal findings in urine
CPT/HCPCS: 36415; 80048; 80061; 80076; 81001; 83036; 83880; 84100; 84439; 84443; 85025

== ENCOUNTER → 2025-07-13 | Outpatient (CLI) | payer MEDICARE, MEDICAID, SELFPAY ==
--- NOTE | 2025-07-13 13:01 | XR_ITS ---
Examination: Left knee 2 views Technique one AP lateral left knee 2 views Date and time: July 13, 2025, 1352 hours, comparison December 02, 2024 INDICATIONS: Left knee pain this month. FINDINGS: Total left knee arthroplasty. Satisfactory alignment No loosening of the prosthetic components No cortical bone destruction IMPRESSION: Total left knee arthroplasty with satisfactory alignment
--- NOTE | 2025-07-13 13:01 | XR_ITS ---
Examination: Lumbar spine, 5 views Technique: Lumbar spine AP, lateral, coned lateral lower lumbar spine, bilateral obliques 5 views Exam date and time: July 13, 2025 1343 hours INDICATIONS: Low back pain months FINDINGS: On the oblique and AP views sclerosis of the pedicles on the left side L2 and L3 Advanced degenerative disc disease L2-L3 No acute fracture No cortical bone destruction Diffuse lumbar disc narrowing IMPRESSION: Sclerotic foci involving the pedicles on the left side L2-L3 Recommend MRI lumbar spine follow-up pre and postcontrast to exclude osseous metastatic disease
== END | disposition home or self-care (01) ==
PROVIDERS: PCP Internal Medicine; Referring Provider Orthopaedic Surgery; Visit Provider Orthopaedic Surgery
DX: M25.562 Pain in left knee (principal); G95.89 Other specified diseases of spinal cord; Z96.659 Presence of unspecified artificial knee joint
CPT/HCPCS: 72110; 73560

== ENCOUNTER → 2025-08-07 | Outpatient (BNVA) | payer MEDICARE, MEDICAID, SELFPAY | END | disposition home or self-care (01) | PROVIDERS: Visit Provider Urology | DX: N39.46 Mixed incontinence (principal); N39.0 Urinary tract infection, site not specified; Z87.440 Personal history of urinary (tract) infections; I12.9 Hypertensive chronic kidney disease with stage 1 through stage 4 chronic kidney disease, or unspecified chronic kidney disease; E11.22 Type 2 diabetes mellitus with diabetic chronic kidney disease; N18.30 Chronic kidney disease, stage 3 unspecified | CPT/HCPCS: 81003; 99212; G0463 ==